=== PATIENT | female | born 1970 | race Two or more races ===

== ENCOUNTER 2022-09-21 13:55 | Emergency (ER) | payer MEDICAID ==
[~2022-09-21] VITALS: Ht 160 cm; Wt 68.2 kg
[2022-09-21 13:55] VITALS: TEMP 98
[2022-09-21] MEDS ORDERED: LETR2.5 PO (13:56)
[2022-09-21] MEDS ORDERED: IBUP-45 PO (13:59)
[2022-09-21] MEDS ORDERED: KETOROLAC TROMETHAMINE 60 MG/2 ML VIAL IM ONE (14:15)
[2022-09-21] MEDS ORDERED: ACETAMINOPHEN/CODEINE 300-30 MG TABLET PO ONE (14:15)
[2022-09-21] MEDS ORDERED: IBUP-1554 PO (15:05)
[2022-09-21] MEDS ORDERED: ACET-2080 PO (15:05)
[2022-09-21 15:51] VITALS: BP 126/78; PULSE 82; RESP 16
== END 2022-09-21 15:51 | disposition home or self-care (01) ==
LOC: EMS 13:56
DX: S93.401A Sprain of unspecified ligament of right ankle, initial encounter (principal); S93.601A Unspecified sprain of right foot, initial encounter; Z85.3 Personal history of malignant neoplasm of breast; Z90.710 Acquired absence of both cervix and uterus; X50.1XXA Overexertion from prolonged static or awkward postures, initial encounter; Y93.89 Activity, other specified; Y92.89 Other specified places as the place of occurrence of the external cause; Y99.8 Other external cause status
CPT/HCPCS: 99284; 73610; 73630; 96372; J1885